=== PATIENT | female | born 1985 | race American Indian/Alaskan Native ===

== ENCOUNTER 2017-09-20 18:22 | Emergency (ER) | payer BC, OTHER ==
[2017-09-20 18:39] VITALS: PULSE 80; TEMP 98.5; BMI 31.1
--- NOTE | 2017-09-20 19:13 | ED PDOC ---
Arrival/HPI - General Chief Complaint: Trauma Time Seen by Provider: 09/20/17 19:09 Historian: Patient - History of Present Illness Narrative History of Present Illness (Text): 09/20/17 19:09 This 32 yo female presents to this ED c/o right foot pain after twisting her foot yesterday. Patient also stated she had a mosquito bite x 3 days ago, and she now has redness on the insect bite areas. Denies other complains. Time/Duration: Other (see hpi) Context: Home Past Medical History - Provider Review Nursing Documentation Reviewed: Yes - Infectious Disease Hx of Infectious Diseases: None - Tetanus Immunization Tetanus Immunization: Unknown - Reproductive Menopause: No - Cardiac Hx Cardiac Disorders: No - Pulmonary Hx Asthma: Yes - Hematological/Oncological Hx Blood Disorders: No - Genitourinary/Gynecological Other/Comment: UTERINE BLEEDING - Psychiatric Hx Psychophysiologic Disorder: No Hx Substance Use: No - Past Surgical History Past Surgical History: No Previous - Anesthesia Hx Anesthesia: No - Suicidal Assessment Feels Threatened In Home Enviroment: No Family/Social History - Physician Review Nursing Documentation Reviewed: Yes Family/Social History: Other (noncontributory) Smoking Status: Unknown If Ever Smoked Hx Alcohol Use: Yes Frequency of alcohol use: Socially Hx Substance Use: No Hx Substance Use Treatment: No Allergies/Home Meds Allergies/Adverse Reactions: Allergies No Known Allergies Allergy (Verified 02/28/14 15:23) Home Medications: Home Meds Medication Instructions Recorded Confirmed Ferrous Sulfate [Ferrous Sulfate] 1 tab PO BID 02/28/14 02/28/14 Medroxyprogesterone Acetate 10 mg PO DAILY 02/28/14 02/28/14 [Provera] Review of Systems - Review of Systems Constitutional: Normal. absent: Fatigue, Weight Change, Fevers Eyes: Normal ENT: Normal Respiratory: Normal. absent: SOB, Cough Cardiovascular: Normal Gastrointestinal: Normal Genitourinary Female: Normal Musculoskeletal: Normal Skin: Rash, Pruritis. absent: Skin Lesions, Laceration, Abscess, Ulcer, Cellulitis Neurological: Normal. absent: Headache, Dizziness, Focal Weakness, Gait Changes , Speech Changes, Facial Droop, Disequilibrium, Seizure Endocrine: Normal Hemo/Lymphatic: Normal Psychiatric: Normal Physical Exam Vital Signs Temp Pulse Resp BP Pulse Ox 09/20/17 18:38 98.5 F 80 18 128/70 100 Temperature: Afebrile Blood Pressure: Normal Pulse: Regular Respiratory Rate: Normal Appearance: Positive for: Well-Appearing, Non-Toxic, Comfortable Pain Distress: None Mental Status: Positive for: Alert and Oriented X 3 - Systems Exam Head: Present: Atraumatic, Normocephalic Pupils: Present: PERRL Extroacular Muscles: Present: EOMI Conjunctiva: Present: Normal Mouth: Present: Moist Mucous Membranes Neck: Present: Normal Range of Motion Respiratory/Chest: Present: Clear to Auscultation, Good Air Exchange. No: Respiratory Distress, Accessory Muscle Use Cardiovascular: Present: Regular Rate and Rhythm, Normal S1, S2. No: Murmurs Abdomen: No: Tenderness, Distention, Peritoneal Signs Back: Present: Normal Inspection. No: CVA Tenderness Upper Extremity: Present: Normal Inspection, Normal ROM. No: Cyanosis, Edema Lower Extremity: Present: NORMAL PULSES, Tenderness (Mild right dorsal foot tenderness), Neurovascularly Intact, Capillary Refill < 2 s. No: Edema, CALF TENDERNESS, Will's Sign, Swelling, Erythema, Temperature Abnormalties Neurological: Present: GCS=15, CN II-XII Intact, Speech Normal Skin: Present: Warm, Dry, Rashes (insect bite o right thigh, b/l arms. No cellulitis), Normal Color Psychiatric: Present: Alert, Oriented x 3, Normal Insight, Normal Concentration Medical Decision Making ED Course and Treatment: 09/20/17 20:10 Re-evaluation. Patient feels better. Discussed results and plan with patient who expresses understanding. All questions answered and there is agreement with the plan to discharge home with instructions. Patient stable for discharge. Return if symptoms persist or worsen. Re-evaluation Time: 20:10 Reassessment Condition: Re-examined, Improved - RAD Interpretation Narrative RAD Interpretations (Text): 09/20/17 20:11 Foot x-rays: no Fx Radiology Orders: 09/20/17 19:14 FOOT RIGHT 3 VIEWS ROUTINE [RAD] Stat - Medication Orders Current Medication Orders: Discontinued Medications Naproxen (Anaprox Ds) 550 mg PO STAT STA Stop: 09/20/17 19:18 Last Admin: 09/20/17 19:27 Dose: 550 mg Triamcinolone Acetonide (Triamcinolone 0.25% Oint) 1 gm TOP STAT STA Stop: 09/20/17 19:15 Last Admin: 09/20/17 19:28 Dose: 0.25 % Disposition/Present on Arrival - Present on Arrival Any Indicators Present on Arrival: No History of DVT/PE: No History of Uncontrolled Diabetes: No Urinary Catheter: No History of Decub. Ulcer: No History Surgical Site Infection Following: None - Disposition Have Diagnosis and Disposition been Completed?: Yes Diagnosis: Foot pain, Insect bite Disposition: HOME/ ROUTINE Disposition Time: 20:13 Patient Plan: Discharge Patient Problems: Current Active Problems Problem Status Onset Foot pain Acute Insect bite Acute Condition: IMPROVED Discharge Instructions (ExitCare): Foot Sprain (DC), Insect Bites and Stings ( DC) Additional Instructions: Call private doctor for follow up visit in 1-2 days. Take medication as instructed. 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 Return to emergency if pain worsen. Keep foot elevated, ice , rest, jesse bandage. Remove jesse bandage at bedtime. topical ointment needs to be applied on affected areas of itching 2 time daily. do not use it for over 7 days Prescriptions: Famotidine [Pepcid] 40 mg PO DAILY #10 tablet Naproxen 500 mg PO BID PRN #14 tablet PRN Reason: Pain, Severe (8-10) Referrals: Naomi Greenberg MD [Primary Care Provider] - Follow up with primary Forms: [facility] ([place]), WORK NOTE
[2017-09-20] MEDS ORDERED: Triamcinolone 0.025% Oint(15 gm) TOP STA (19:14)
[2017-09-20] MEDS ORDERED: Naproxen 550 mg Tab PO STA (19:17)
[2017-09-20 20:43] VITALS: BP 132/65; RESP 19; O2SAT 99
--- NOTE | 2017-09-21 12:33 | RAD ---
PROCEDURE: Right Foot Radiographs. HISTORY: pain s/p fall COMPARISON: None. FINDINGS: BONES: Normal. No fracture. JOINTS: Normal. SOFT TISSUES: Normal. OTHER FINDINGS: None. IMPRESSION: Normal right foot radiographs.
== END 2017-09-20 20:27 | disposition home or self-care (01) ==
LOC: ED 18:22
DX: M79.671 Pain in right foot (principal); S70.361A Insect bite (nonvenomous), right thigh, initial encounter; S40.862A Insect bite (nonvenomous) of left upper arm, initial encounter; S40.861A Insect bite (nonvenomous) of right upper arm, initial encounter; W57.XXXA Bitten or stung by nonvenomous insect and other nonvenomous arthropods, initial encounter